=== PATIENT | male | born 1955 | race Caucasian/White ===

== ENCOUNTER 2019-01-13 10:48 | Day surgery (SDC) | payer OTHER ==
[2019-01-10 10:28] VITALS: BMI 27.1
[~2019-01-13 10:48] MED LIST: LACTATED RINGERS 1,000 ML IV SCH; LIDOCAINE 1% 20 ML VIAL (10MG/ML) FOR IV START INTRADERMA PRN
[2019-01-13 11:15] VITALS: TEMP 97.1
--- NOTE | 2019-01-13 12:17 | P.PCN ---
Date of Procedure: 01/13/19 Description of Procedure: BRIEF HISTORY: [id number] male presenting for outpatient colonoscopy. Patient denies any prior colonoscopies and no family history of colon cancer. No blood per rectum or abdominal pain reported. PROCEDURE PERFORMED: Colonoscopy with polypectomy . PREOPERATIVE DIAGNOSIS: Change in bowel habits, no prior colonoscopy. ESTIMATED BLOOD LOSS: Minimal. IV sedation per Anesthesia. PROCEDURE: After informed consent was obtained, the patient, was brought into the endoscopy unit. IV sedation was administered by Anesthesia under continuous monitoring. Digital rectal examination was normal. Initially the Olympus CF-190 flexible video colonoscope was then inserted in the rectum, gradually advanced into the cecum without any difficulty. Careful examination was performed as the scope was gradually being withdrawn. Ileocecal valve and the appendiceal orifice were visualized and appeared normal. Prep was excellent. Mucosa of the cecum, ascending colon, transverse colon, descending colon, sigmoid colon, and rectum appeared normal. the patient had a few small scattered diverticula in the sigmoid colon. A 6 mm sessile ascending colon polyp was removed with cold snare polypectomy. 2 diminutive 1 mm rectal polyps removed with cold forcep polypectomy. Retroflexion was performed in the rectum and no lesions were seen, Mild internal hemorrhoids noted. The patient tolerated the procedure well. IMPRESSION: Ascending colon polyp removed with cold snare polypectomy. 2 diminutive rectal polyps removed with cold forcep polypectomy. Mild sigmoid diverticulosis. RECOMMENDATIONS: Findings of this examination were discussed with the patient and his friend. Okay to resume diet. Okay to resume Xarelto tomorrow. Recommend repeat colonoscopy in 5 years for colon polyps, pending pathology from polypectomy.
[2019-01-13 12:31] VITALS: BP 118/73; PULSE 67; RESP 17
[2019-01-13] MEDS ORDERED: PROPOFOL 10 MG/ML 20 ML VIAL IV ONE (15:00)
== END 2019-01-13 12:53 | disposition home or self-care (01) ==
LOC: ORWHC2ENDO 10:48
PROVIDERS: ATTEND Internal Medicine
DX: D12.2 Benign neoplasm of ascending colon (principal); K57.30 Diverticulosis of large intestine without perforation or abscess without bleeding; I10 Essential (primary) hypertension; E78.5 Hyperlipidemia, unspecified; J44.9 Chronic obstructive pulmonary disease, unspecified; F17.200 Nicotine dependence, unspecified, uncomplicated; F39 Unspecified mood [affective] disorder; G62.9 Polyneuropathy, unspecified; Z79.01 Long term (current) use of anticoagulants; Z79.1 Long term (current) use of non-steroidal anti-inflammatories (NSAID); Z79.82 Long term (current) use of aspirin; Z79.3 Long term (current) use of hormonal contraceptives; Z79.899 Other long term (current) drug therapy
CPT/HCPCS: 88305; 45380; 45385; J2704

== ENCOUNTER 2020-11-21 10:57 | Emergency (ER) | payer OTHER ==
[2020-11-21 11:08] VITALS: TEMP 98.3
--- NOTE | 2020-11-21 12:48 | US ---
EXAMINATION TYPE: US venous doppler duplex LE LT DATE OF EXAM: 11/21/2020 12:11 PM COMPARISON: NONE CLINICAL HISTORY: edema, . Left leg pain, patient on blood thinners SIDE PERFORMED: Left TECHNIQUE: The lower extremity deep venous system is examined utilizing real time linear array sonog ken with graded compression, doppler sonography and color-flow sonography. VESSELS IMAGED: Common Femoral Vein Deep Femoral Vein Greater Saphenous Vein * Femoral Vein Popliteal Vein Small Saphenous Vein * Proximal Calf Veins (* superficial vessels) There is normal flow, compressibility, vascular waveforms Left Leg: Appears negative for DVT IMPRESSION: No evident deep venous thrombosis at the level of the knee or central within the left low er extremity
[2020-11-21] MEDS ORDERED: CEPHALEXIN 500MG STARTER PACK 4 CAP BTL PO STA (13:48)
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
[2020-11-21 14:01] VITALS: BP 141/79; PULSE 70; RESP 16
== END 2020-11-21 14:01 | disposition home or self-care (01) ==
LOC: EC 10:57
DX: S80.12XA Contusion of left lower leg, initial encounter (principal); F17.200 Nicotine dependence, unspecified, uncomplicated; I10 Essential (primary) hypertension; J44.9 Chronic obstructive pulmonary disease, unspecified; E78.5 Hyperlipidemia, unspecified; Z88.4 Allergy status to anesthetic agent; Z79.899 Other long term (current) drug therapy; X58.XXXA Exposure to other specified factors, initial encounter
CPT/HCPCS: 99283

== ENCOUNTER 2022-03-09 13:13 | Emergency (ER) | payer OTHER ==
[2022-03-09 14:02] VITALS: PULSE 72; TEMP 97.7
[2022-03-09] MEDS ORDERED: SODIUM CHLORIDE 0.9% 1,000 ML IV ONE (17:07)
[2022-03-09 17:44] LABS: Basophils # (A) 0.1 k/uL (0-0.2); Basophils % (A) 1 %; Eosinophils # (A) 0.3 k/uL (0-0.7); Eosinophils % (A) 5 %; HCT 46.5 % (39.0-53.0); HGB 15.5 gm/dL (13.0-17.5); Lymphocytes # (A) 1.8 k/uL (1.0-4.8); Lymphocytes % (A) 28 %; MCH 30.8 pg (25.0-35.0); MCHC 33.3 g/dL (31.0-37.0); MCV 92.5 fL (80.0-100.0); Mean Platelet Volume 10.1; Monocytes # (A) 0.4 k/uL (0-1.0); Monocytes % (A) 7 %; Neutrophils # (A) 3.6 k/uL (1.3-7.7); Neutrophils % (A) 55 %; Platelet Count 159 k/uL (150-450); RBC 5.03 m/uL (4.30-5.90); RDW 13.2 % (11.5-15.5); WBC 6.5 k/uL (3.8-10.6)
[2022-03-09 17:46] LABS: Appearance,Urine Clear (Clear); Bilirubin,Urine Negative (Negative); Blood,Urine Negative (Negative); Color,Urine Yellow; Glucose,Urine (UA) Negative (Negative); Ketones,Urine Negative (Negative); Leukocyte Esterase,Urine Negative (Negative); Nitrite,Urine Negative (Negative); Protein,Urine Negative (Negative); Specific Gravity,Urine 1.023 (1.001-1.035); Urobilinogen,Urine <2.0 mg/dL (<2.0)
[2022-03-09 17:51] LABS: Albumin 4.2 g/dL (3.5-5.0); Calcium 9.5 mg/dL (8.4-10.2); Potassium 5.4 mmol/L (3.5-5.1); Total Bilirubin 0.6 mg/dL (0.2-1.3); Total Protein 6.9 g/dL (6.3-8.2)
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
[2022-03-09 19:45] LABS: INR 1.1 (<1.2); Prothrombin Time 11.2 sec (9.0-12.0)
[2022-03-09 19:46] LABS: Partial Thromboplastin Time 28.5 sec (22.0-30.0)
--- NOTE | 2022-03-09 20:18 | CT ---
EXAMINATION TYPE: CT angio tho/abd W Run Off DATE OF EXAM: 03/09/2022 COMPARISON: HISTORY: claudication symptoms. RT leg pain and weakness. hx of femoral bypass. CT DLP: 2729.2 mGycm Automated exposure control for dose reduction was used. Contrast: 120 mL [id number] Technique: Axial images 2 mm thick sections. Reconstructed images in the coronal and sagittal plane. 3-D reconstructed images performed on a separate computer support technician. FINDINGS: There is a three-vessel arch. Ascending thoracic aorta at the level of the main pulmonary artery mckenna ures 3.0 cm. The pulmonary artery bifurcation is 2.4 cm. The descending thoracic aorta tapers normall y through its visualized course. No aneurysmal dilatation or dissection is evident. There is narrowing of the origin of the right renal artery. Left renal artery appears normal. The abd ominal aorta is obstructed at the level of the renal arteries. Celiac axis and superior mesenteric ar teries are patent. Superior mesenteric arteries provide collateral flow to the external iliac arterie s. The aortofemoral bypass grafts are obstructed. Femorofemoral bypass is obstructed. There is flow w ithin the superficial femoral arteries and profunda femoris. Popliteal arteries are patent. Trifurcation vessels are evident bilaterally. Posterior tibial artery is occluded above the ankle on the right. Peroneal anterior tibial arteries are patent to the level o f the ankle. Liver and spleen appear normal. Kidneys are without masses cyst or hydronephrosis pancreas appears no rmal. Loops of bowel within the abdomen appear normal. Urinary bladder is normal IMPRESSION: 1. OBSTRUCTION OF THE ABDOMINAL AORTA AT THE LEVEL OF THE RENAL ARTERIES WITH RECONSTITUTION OF THE S UPERFICIAL FEMORAL ARTERIES. REPORT WAS CALLED TO EMERGENCY ROOM PHYSICIAN BY DR. MELO BY TELEPHON E AT THE TIME OF INTERPRETATION.
[2022-03-09] MEDS ORDERED: HEPARIN SODIUM 1,000 UN/ML (10ML VL) IV ONE (20:20)
[2022-03-09] MEDS ORDERED: HEPARIN SODIUM 1,000 UN/ML (10ML VL) IV PRN (20:20)
[2022-03-09] MEDS ORDERED: HEPARIN SOD,PORK IN 0.45% NACL 25,000 UNIT in 0.45% NACL 1 250ML.BAG IV SCH (20:30)
[2022-03-09 20:58] LABS: INR 1.1 (<1.2); Prothrombin Time 11.1 sec (9.0-12.0)
[2022-03-09 21:29] VITALS: BP 156/73; RESP 18
== END 2022-03-09 21:27 | disposition left against medical advice (07) ==
LOC: EC 13:13
DX: I74.09 Other arterial embolism and thrombosis of abdominal aorta (principal); J44.9 Chronic obstructive pulmonary disease, unspecified; I10 Essential (primary) hypertension; E78.5 Hyperlipidemia, unspecified; F17.200 Nicotine dependence, unspecified, uncomplicated; Z79.899 Other long term (current) drug therapy; Z79.82 Long term (current) use of aspirin; Z88.4 Allergy status to anesthetic agent
CPT/HCPCS: 99285; 96360; 36415; 80053; 83605; 85025; 85610; 85730; 81003; 75635; 71275; Q9967